=== PATIENT | female | born 1965 | race Caucasian/White ===

== ENCOUNTER 2017-11-13 07:38 | Observation (INO) ==
[2017-11-13] MEDS ORDERED: Morphine Inj 4 MG/ML Vial IV.PUSH ONE (08:01)
[2017-11-13 08:23] LABS: Baso # (Auto) 0.5 th/mm3 (0.0-0.2); Baso % (Auto) 3.7 % (0.0-2.0); Eos # (Auto) 0.1 th/mm3 (0.0-0.4); Eos % (Auto) 0.4 % (0.0-4.0); Hemoglobin 15.1 gm/dL (11.6-15.3); Lymph # (Auto) 1.3 th/mm3 (1.0-4.8); Lymph % (Auto) 9.2 % (9.0-44.0); Mean Corpuscular HGB Conc 32.8 % (32.0-36.0); Mean Corpuscular Hemoglobin 29.6 pg (27.0-34.0); Mean Corpuscular Volume 90.5 fL (80.0-100.0); Mean Platelet Volume 7.9 fL (7.0-11.0); Mono # (Auto) 0.9 th/mm3 (0.0-0.9); Mono % (Auto) 6.3 % (0.0-8.0); Neut # (Auto) 11.8 th/mm3 (1.8-7.7); Neut % (Auto) 80.4 % (16.0-70.0); Platelet Count 476 th/mm3 (150-450); Red Blood Count 5.09 mil/mm3 (4.00-5.30); Red Cell Distribution Width 12.9 % (11.6-17.2); White Blood Count 14.6 th/mm3 (4.0-11.0)
[2017-11-13 08:28] LABS: Bilirubin,Urine Moderate (Negative); Clarity,Urine Clear (Clear); Color,Urine Yellow (Yellw/Straw); Glucose,Urine (UA) Negative (Negative); Leukocyte Esterase,Urine Negative (Negative); Nitrite,Urine Negative (Negative); Specific Gravity,Urine Greater/Equal 1.030 (1.002-1.035)
[2017-11-13 08:31] LABS: Ictotest,Urine Positive (Negative)
[2017-11-13 08:32] LABS: Chloride 104 meq/L (98-107); Potassium 3.7 meq/L (3.5-5.1); Sodium 136 meq/L (136-145)
[2017-11-13 08:34] LABS: Hyaline Casts,Urine 0-3 /lpf (0-3); Squamous Epithelial Cell,Urine 0-5 /hpf (0-5); WBC,Urine 0-5 /hpf (0-5)
[2017-11-13 08:35] LABS: Mucus,Urine Moderate /lpf (Occasional)
[2017-11-13 08:35] LABS: Calcium 8.9 mg/dL (8.5-10.1)
[2017-11-13 08:36] LABS: Albumin 3.6 g/dL (3.4-5.0); Anion Gap 13 meq/L (5-15); Blood Urea Nitrogen 9 mg/dL (7-18); Carbon Dioxide 18.9 meq/L (21.0-32.0); Glucose,Random 129 mg/dL (74-106); Lipase 108 U/L (73-393)
[2017-11-13 08:38] LABS: Alanine Aminotransferase 17 U/L (10-53); Aspartate Aminotransferase 13 U/L (15-37)
[2017-11-13 08:39] LABS: Glomerular Filtration Rate 81 mL/min (>89)
[2017-11-13 08:40] LABS: Total Protein 7.5 g/dL (6.4-8.2)
[2017-11-13 08:41] LABS: Alkaline Phosphatase 60 U/L (45-117)
--- NOTE | 2017-11-13 08:45 | ED ---
HPI General Chief Complaint: Abdominal Pain Stated Complaint: severe abd pain/vomiting x2 days Time Seen by Provider: 11/13/17 07:55 Source: patient Mode of arrival: ambulatory Limitations: no limitations History of Present Illness MD complaint: abdominal pain Onset (ago): day(s) (2) Pain Consistency: constant Location: RUQ Severity scale (1-10): 5 Quality: cramping Radiation: none Migration to: no migration Relieving factors: nothing Exacerbating factors: nothing Context: other (states that she has had many self-limited previous similar episodes but that this one won't go away. All other episodes have only lasted a few minutes.) Associated symptoms: nausea and vomiting Related Data Home Medications Medication Instructions Recorded Confirmed No Known Home Medications 11/13/17 11/13/17 Allergies Allergy/AdvReac Type Severity Reaction Status Date / Time penicillin G Allergy Intermediate Hives Verified 11/13/17 08:01 Review of Systems ROS: all other systems reviewed are negative [facility] Medical History Medical History Patient denies medical problems (Acute) Surgical History Surgical History H/O: (Acute) Social History Social History Substance History: No History of Abuse Smoking Status: Never smoker How Often Do You Have a Drink Containing Alcohol: Monthly or less Recent Travel in [facility] within the Last 8 Weeks: No Recent Out of Country Travel within the Last 8 Weeks: No Immunization History Tetanus Immunization: Unsure Hx Influenza Vaccine This Season: No Exam Const General: cooperative, healthy appearing and comfortable [facility] Head: normal to inspection, normocephalic and atraumatic Eyes General: appearance normal, both eyes and all related structures Conjunctivae: conjunctivae normal Sclera: sclerae normal Neck Neck: normal visual inspection and full ROM Chest Chest: normal inspection of the chest Resp Effort & Inspection: normal respiratory effort and able to speak in complete sentences Auscultation: clear to auscultation bilaterally Cardio Rate: regular rate Rhythm: regular rhythm Heart Sounds: S1 normal and S2 normal GI Inspection: normal to inspection Palpation: soft, no guarding and tender in the RUQ; with no rebound tenderness Back/Spine/Pelvis Cervical Spine: cervical ROM normal Thoracic/Lumbar Spine: thoraco-lumbar ROM normal Skin General: no rashes or lesions noted and turgor normal Neuro General: alert, awake, oriented x3, moves all extremities and CN's II-XI intact bilaterally Extrem General: normal to inspection and full ROM Psych Appearance: grossly normal Mental Status: mental status grossly normal Speech and Movement: speech and movement normal Mood: congruent mood Affect: normal affect Attitude: cooperative Thought Process: normal Thought Content: normal Judgment: judgment good Course Reevaluation(s) Reevaluation #1: Based upon the results of her laboratory and radiographic findings, I have recommended admission to the hospital surgical consultation. The patient is very interested in a rapid discharge. She is wondering if she could have a cholecystectomy done today. She does state that she is n.p.o. I will consult the surgeon. Time: 10:23 Consultations Consultation #1: Dr. Hou will admit Time: 10:45 Consultation #2: Dr. Montejo will see in consultation for cholecystectomy Time: 10:59 Initial Documented Vital Signs Temperature 98.8 F 11/13/17 07:44 Pulse Rate 99 H 11/13/17 07:44 Respiratory Rate 16 11/13/17 07:44 Blood Pressure 145/78 H 11/13/17 07:44 Pulse Oximetry 98 11/13/17 07:44 Last Documented Vital Signs Temperature 98.8 F 11/13/17 07:44 Pulse Rate 83 11/13/17 09:00 Respiratory Rate 14 11/13/17 09:00 Blood Pressure 134/69 11/13/17 09:00 Pulse Oximetry 97 11/13/17 09:00 Medical Decision Making [facility] Narrative Medical decision making narrative: This patient presents with right upper quadrant pain associated with nausea and vomiting. Her pain and vomiting will be treated with IV morphine and ODT Zofran. Routine abdominal pain labs are pending as is a CT of the abdomen and pelvis. Differential Diagnosis Differential Diagnosis: Differential diagnosis of abdominal pain includes but is not limited to gastritis, pancreatitis, hepatitis, gastroenteritis, constipation, urinary retention, peptic ulcer disease, diverticulitis or appendicitis POC Test Results POC Urine Results: Negative Lab Data Lab results reviewed: Yes I reviewed the patient's lab results. Result diagrams: 11/13/17 08:15 11/13/17 08:15 Lab Results 11/13/17 11/13/17 11/13/17 Range/Units 08:15 08:15 08:25 CBC w Diff Auto diff final WBC 14.6 H (4.0-11.0) th/mm3 RBC 5.09 (4.00-5.30) mil/mm3 Hgb 15.1 (11.6-15.3) gm/dL Hct 46.0 (35.0-46.0) % MCV 90.5 (80.0-100.0) fL MCH 29.6 (27.0-34.0) pg MCHC 32.8 (32.0-36.0) % RDW 12.9 (11.6-17.2) % Plt Count 476 H (150-450) th/mm3 MPV 7.9 (7.0-11.0) fL Neut % (Auto) 80.4 H (16.0-70.0) % Lymph % (Auto) 9.2 (9.0-44.0) % [place] % (Auto) 6.3 (0.0-8.0) % Eos % (Auto) 0.4 (0.0-4.0) % Baso % (Auto) 3.7 H (0.0-2.0) % Neut # (Auto) 11.8 H (1.8-7.7) th/mm3 Lymph # (Auto) 1.3 (1.0-4.8) th/mm3 [place] # (Auto) 0.9 (0.0-0.9) th/mm3 Eos # (Auto) 0.1 (0.0-0.4) th/mm3 Baso # (Auto) 0.5 H (0.0-0.2) th/mm3 WBC Differential . Differential Comment . Sodium 136 (136-145) meq/L Potassium 3.7 (3.5-5.1) meq/L Chloride 104 (98-107) meq/L Carbon Dioxide 18.9 L (21.0-32.0) meq/L Anion Gap 13 (5-15) meq/L BUN 9 (7-18) mg/dL Creatinine 0.75 (0.50-1.00) mg/dL Estimated GFR 81 L (>89) mL/min Random Glucose 129 H (74-106) mg/dL Calcium 8.9 (8.5-10.1) mg/dL Total Bilirubin 0.6 (0.2-1.0) mg/dL AST 13 L (15-37) U/L ALT 17 (10-53) U/L Alkaline Phosphatase 60 (45-117) U/L Total Protein 7.5 (6.4-8.2) g/dL Albumin 3.6 (3.4-5.0) g/dL Lipase 108 (73-393) U/L Urine Color Yellow (Yellw/Straw) Urine Clarity Clear (Clear) Urine pH 6.0 (5.0-8.5) Ur Specific [place] Greater/equal 1.030 (1.002-1.035) Urine Protein 100 H (Neg-Trace) mg/dL Urine Glucose (UA) Negative (Negative) mg/dL Urine Ketones 80 or greater (Negative) mg/dL Urine Occult Blood Negative (Negative) Urine Nitrate Negative (Negative) Urine Bilirubin Moderate H (Negative) Urine Ictotest Positive H (Negative) Urine Urobilinogen 1.0 (Less than 2) mg/dL Ur Leukocyte Esterase Negative (Negative) Urine WBC 0-5 (0-5) /hpf Ur Squamous Epith Cells 0-5 (0-5) /hpf Hyaline Casts 0-3 (0-3) /lpf Fine Granular Casts 1-3 H (None) /lpf Urine Mucus Moderate H (Occasional) /lpf Micro UA Comment Culture not ind Urine Culture Comments Culture not ind Imaging Data Radiologist's impression: Abdomen/Pelvis CT 11/13/17 08:01 CONCLUSION: 1. Abnormal appearance of the gallbladder with gallbladder wall thickening, focus of intraluminal gallbladder air and pericholecystic stranding. 2. Findings consistent with mild jejunal enteritis and mild ileus pattern. There is a 1.7 cm targetoid-appearing intraluminal lesion in the cecum which may reflect a gallstone. Constellation of findings may reflect gallstone ileus. 3. Trace amount of ascites. Discharge Plan Discharge Disposition Patient Disposition: 30 Still Patient Discharge Details Diagnosis: Acute cholecystitis due to biliary calculus, Gallstone ileus Physicians Team ED Provider: Kelli Vinson Primary Care Provider: Primary Care Cinthya Burgos Rxs /Orders / Referrals /Forms Prescriptions: No Action No Known Home Medications RF: 0 Status ED Status: Pending Admission
--- NOTE | 2017-11-13 09:54 | CT ---
EXAM DATE: 11/13/2017 8:39 AM EDT AGE/SEX: 52 years / Female INDICATIONS: Right upper quadrant pain for two days. CLINICAL DATA: This is the patient's initial encounter. Patient reports that signs and symptoms have been present for 2 days and indicates a pain score of 5/10. MEDICAL/SURGICAL HISTORY: None. section. ORAL CONTRAST: No oral contrast ingested. RADIATION DOSE: 20.19 CTDI (mGy) COMPARISON: No prior exams available for comparison. TECHNIQUE: Multiple contiguous axial images were obtained through the abdomen and pelvis following b olus infusion of 95 ml Omnipaque 350 (iohexol) nonionic water-soluble contrast as a single exam dos e. No oral contrast ingested. Using automated exposure control and adjustment of the mA and/or kV ac cording to patient size, radiation dose was kept as low as reasonably achievable to obtain optimal di agnostic quality images. DICOM format image data is available electronically for review and comparis on. FINDINGS: LOWER LUNGS: The visualized lower lungs are clear. LIVER: Focal ill-defined hypodensity near the falciform ligament likely reflects focal fat. Liver is otherwise unremarkable without intrahepatic ductal dilatation. Gallbladder is nearly completely deco mpressed. However, there is gallbladder wall thickening with a focus of air in the gallbladder and th ere is stranding in the gallbladder fossa. SPLEEN: Homogeneous density without enlargement. PANCREAS: Unremarkable without mass or calcification. KIDNEYS: Kidneys demonstrate symmetrical enhancement and are symmetrical in size without evidence fo r radiopaque renal calculi or hydronephrosis. ADRENAL GLANDS: Unremarkable. AORTA: Denise-aneurysmal. BOWEL/MESENTERY: There are several loops of mid to distal jejunum which demonstrate wall thickening and increased wall enhancement. More distally, there are multiple loops of marginally distended fluid -filled distal jejunum and ileum. The terminal ileum is grossly unremarkable by CT. There is a rounde d targetoid-appearing intraluminal lesion in the cecum measuring 1.7 cm. Fluid is noted in the cecum which does not appear significantly dilated. Remainder of the colon appears unremarkable. There is tr vita amount of free fluid in the abdomen with small amount of fluid in the deep pelvis. ABDOMINAL WALL : Intact. RETROPERITONEUM: No evidence of adenopathy in the retrocrural, para-aortic, or deep pelvic regions. BLADDER: Nearly completely decompressed. REPRODUCTIVE: No abnormal masses or calcifications seen. BONY STRUCTURES: Unremarkable. CONCLUSION: 1. Abnormal appearance of the gallbladder with gallbladder wall thickening, focus of intraluminal ga llbladder air and pericholecystic stranding. 2. Findings consistent with mild jejunal enteritis and mild ileus pattern. There is a 1.7 cm targeto id-appearing intraluminal lesion in the cecum which may reflect a gallstone. Constellation of finding s may reflect gallstone ileus. 3. Trace amount of ascites. Electronically signed by: Corby Bruner MD 11/13/2017 9:53 AM EDT
[2017-11-13] MEDS ORDERED: Bisacodyl 10 MG Supp RECTAL PRN (11:03)
[2017-11-13] MEDS ORDERED: Temazepam 15 MG Capsule PO PRN (11:03)
--- NOTE | 2017-11-13 11:11 | P.HPIM ---
History of Present Illness Primary Care Physician: No Primary Care Physician Chief Complaint: Abdominal pain with nausea and vomiting History of Present Illness: This patient very pleasant healthy 52-year-old female who reports at least 2 years of intermittent abdominal pain which has been severe with increased association of nausea and vomiting over the last 2 days. She normally has this pain intermittently worse with fatty foods and improved with dietary changes. She has never been evaluated in the past for that. She has some leukocytosis and decreased CO2. Abdominal discomfort here was relieved with antiemetics. Patient has declined any narcotics. Patient CT of the abdomen and pelvis was done which did show gallbladder disease. Patient is recommended for further observation due to dehydration and evaluation of her gallbladder. - Diagnosis (1) Nausea and vomiting (2) Gallstone ileus Review of Systems All other systems reviewed negative except as stated in HPI PMFSH - History History Provided By: Patient - Medical History Medical History: Medical History (Last Reviewed 11/13/17 @ 11:10 by Lisa Hou MD) Patient denies medical problems - Surgical History Surgical History: Surgical History (Last Reviewed 11/13/17 @ 11:10 by Lisa Hou MD) H/O: - Family History Family History: Family History (Last Updated 11/13/17 @ 11:10 by Lisa Hou MD) Other Bladder cancer - Tobacco History Smoking Status: Never smoker - Alcohol History How Often Do You Have a Drink Containing Alcohol: Monthly or less - Substance Use History Substance History: No History of Abuse - Travel History Recent Travel in the [place] Within the Last 8 Weeks: No Recent Travel Out of the Country Within the Last 8 Weeks: No - Immunization History Tetanus Immunization: Unsure Hx Influenza Vaccine This Season: No Medications and Allergies Active Medications: Active Medications Bisacodyl (Dulcolax Supp) 10 mg RECTAL DAILY PRN PRN Reason: SEVERE CONSITIPATION Lactated Ringer's (Lr 1000 Ml Inj) 1,000 mls @ 100 mls/hr IV.CONT .Q10H DEEPA Lactulose (Lactulose Liq) 30 ml PO DAILY PRN PRN Reason: SEVERE CONSITIPATION Metoclopramide HCl (Reglan Inj) 5 mg IV.PUSH Q6HR PRN; Protocol PRN Reason: NAUSEA OR VOMITING Sodium Chloride (Ns Flush) 2 ml IV.FLUSH PRN PRN PRN Reason: FLUSH AFTER USING IV ACCESS Temazepam (Restoril) 15 mg PO HS PRN PRN Reason: INSOMNIA Allergies Allergy/AdvReac Type Severity Reaction Status Date / Time penicillin G Allergy Intermediate Hives Verified 11/13/17 08:01 Home Medications Medication Instructions Recorded Confirmed Type No Known Home Medications 11/13/17 11/13/17 History Exam Vital signs: Vital Signs 11/13/17 07:44 11/13/17 09:00 Temperature 98.8 F Pulse Rate 99 H 83 Respiratory Rate 16 14 Blood Pressure 145/78 H 134/69 Pulse Oximetry 98 97 Intake & Output 11/12/17 11/13/17 11/13/17 18:59 06:59 18:59 Weight 94.3 kg Narrative: GENERAL: Well-nourished, well-developed patient. Complaining of nausea SKIN: Warm and dry. HEAD: Normocephalic. EYES: No scleral icterus. No injection or drainage. NECK: Supple, trachea midline. No JVD or lymphadenopathy. CARDIOVASCULAR: Regular rate and rhythm without murmurs, gallops, or rubs. RESPIRATORY: Breath sounds equal bilaterally. No accessory muscle use. GASTROINTESTINAL: Abdomen soft, non-tender, mildly distended negative Conroy's MUSCULOSKELETAL: No cyanosis, or edema. BACK: Nontender without obvious deformity. No CVA tenderness. NEUROLOGICAL: Awake and alert. Cranial nerves II through XII intact. Motor and sensory grossly within normal limits. Five out of 5 muscle strength in all muscle groups. Normal speech. Results - Labs CBC & Chem 7: 11/13/17 08:15 11/13/17 08:15 Labs: Short CBC 11/13/17 Range/Units 08:15 WBC 14.6 H (4.0-11.0) th/mm3 Hgb 15.1 (11.6-15.3) gm/dL Hct 46.0 (35.0-46.0) % Plt Count 476 H (150-450) th/mm3 BMP 11/13/17 08:15 Sodium 136 Potassium 3.7 Chloride 104 Carbon Dioxide 18.9 L BUN 9 Creatinine 0.75 Calcium 8.9 Liver Function 11/13/17 Range/Units 08:15 Total Bilirubin 0.6 (0.2-1.0) mg/dL AST 13 L (15-37) U/L ALT 17 (10-53) U/L Alkaline Phosphatase 60 (45-117) U/L Albumin 3.6 (3.4-5.0) g/dL Urine 11/13/17 Range/Units 08:25 Urine Color Yellow (Yellw/Straw) Urine Clarity Clear (Clear) Urine pH 6.0 (5.0-8.5) Ur Specific [place] Greater/equal 1.030 (1.002-1.035) Urine Protein 100 H (Neg-Trace) mg/dL Urine Glucose (UA) Negative (Negative) mg/dL - Imaging Impressions Abdomen/Pelvis CT 11/13/17 08:01 CONCLUSION: 1. Abnormal appearance of the gallbladder with gallbladder wall thickening, focus of intraluminal gallbladder air and pericholecystic stranding. 2. Findings consistent with mild jejunal enteritis and mild ileus pattern. There is a 1.7 cm targetoid-appearing intraluminal lesion in the cecum which may reflect a gallstone. Constellation of findings may reflect gallstone ileus. 3. Trace amount of ascites. Caprini VTE Risk Assessment Caprini VTE Risk Assessment: No/Low Risk (score <= 1) Caprini Risk Assessment Model: Point Value = 1 Point Value = 2 Point Value = 3 Point Value = 5 Age 41-60 Minor surgery BMI > 25 kg/m2 Swollen legs Varicose veins or History of unexplained or recurrent spontaneous Oral contraceptives or hormone replacement Sepsis (< 1 month) Serious lung disease, including pneumonia (< 1 month) Abnormal pulmonary function Acute myocardial infarction Congestive heart failure (< 1 month) History of inflammatory bowel disease Medical patient at bed rest Age 61-74 Arthroscopic surgery Major open surgery (> 45 min) Laparoscopic surgery (> 45 min) Malignancy Confined to bed (> 72 hours) Immobilizing plaster cast Central venous access Age >= 75 History of VTE Family history of VTE Factor V Leiden Prothrombin [id number] Lupus anticoagulant Anticardiolipin antibodies Elevated serum homocysteine Heparin-induced thrombocytopenia Other congenital or acquired thrombophilia Stroke (< 1 month) Elective arthroplasty Hip, pelvis, or leg fracture Acute spinal cord injury (< 1 month) Prophylaxis Regimen: Total Risk Factor Score Risk Level Prophylaxis Regimen 0-1 Low Early ambulation 2 Moderate Order ONE of the following: *Sequential Compression Device (SCD) *Heparin 5000 units SQ BID 3-4 Higher Order ONE of the following medications: *Heparin 5000 units SQ TID *Enoxaparin/Lovenox 40 mg SQ daily (WT < 150 kg, CrCl > 30 mL/min) *Enoxaparin/Lovenox 30 mg SQ daily (WT < 150 kg, CrCl > 10-29 mL/min) *Enoxaparin/Lovenox 30 mg SQ BID (WT < 150 kg, CrCl > 30 mL/min) AND/OR *Sequential Compression Device (SCD) 5 or more Highest Order ONE of the following medications: *Heparin 5000 units SQ TID (Preferred with Epidurals) *Enoxaparin/Lovenox 40 mg SQ daily (WT < 150 kg, CrCl > 30 mL/min) *Enoxaparin/Lovenox 30 mg SQ daily (WT < 150 kg, CrCl > 10-29 mL/min) *Enoxaparin/Lovenox 30 mg SQ BID (WT < 150 kg, CrCl > 30 mL/min) AND *Sequential Compression Device (SCD) Assessment and Plan - Assessment (1) Nausea and vomiting Code(s): R11.2 - Nausea with vomiting, unspecified Status: Acute Plan: Continue with IV hydration Antiemetics as needed (2) Gallstone ileus Code(s): K56.3 - Gallstone ileus Status: Acute Plan: Continue with n.p.o. status General surgery consult pending for possible cholecystectomy Follow-up ultrasound right upper quadrant
--- NOTE | 2017-11-13 12:51 | US ---
EXAM DATE: 11/13/2017 12:44 PM EDT AGE/SEX: 52 years / Female INDICATIONS: Right upper quadrant pain. CLINICAL DATA: This is the patient's initial encounter. Patient reports that signs and symptoms have been present for 1 day and indicates a pain score of 5/10. MEDICAL/SURGICAL HISTORY: Carcinoma, bladder. section. COMPARISON: [facility], CT ABDOMEN & PELVIS W CONTRAST, 11/13/2017. . MEASUREMENTS: Liver:__ 14.3 cm. Common Bile Duct:__ Nonvisualized. FINDINGS: Liver: Normal echotexture without focal lesion or ductal dilatation. Portal Vein: Hepatopedal flow seen in portal vein. Common Duct: Not visualized Gallbladder: Gallbladder wall appears mildly thickened. Shadowing gallstones present. Pancreas: Not well visualized. Right Kidney: Normal echotexture and cortical thickness. No mass or hydronephrosis. CONCLUSION: 1. Mild thickening of the gallbladder wall with presumed gallstones. Gallbladder is partially contra cted. The common bile duct and pancreas are not well visualized. No significant abnormality in the li warren. Electronically signed by: Bg Crews MD 11/13/2017 12:49 PM EDT
--- NOTE | 2017-11-13 20:55 | P.CONGS ---
HPI Gen Surgery Consult Note Consult date: 11/13/17 Reason for consult: gallstones Requesting physician: Lisa Hou Narrative: This is a 52 year old female with no significant past medical history who presented to the ED with complaints of 2 day history of abdominal pain with associated nausea and vomiting. She has had intermittent abdominal pain for the past two years but never this severe. She can associated pain with fatty foods such as pizza. A CT abdomen/pelvis was obtained which shows dilated loops and a concern for gallstone ileus with a gallstone visualized in the cecum. A gallbladder ultrasound was obtained which shows mild thickening of the gallbladder wall and cholelithiasis. A General Surgery consultation has been requested. <Apolonia Stallworth - Last Filed: 11/14/17 10:04> Review of Systems Constitutional: Denies chills, Denies fever(s), Denies headache(s) Eyes: Denies blurry vision Ears, Nose, Mouth, and Throat: Denies headache(s) Cardiovascular: Denies chest pain, Denies chest pain at rest, Denies chest pain with activity Respiratory: Denies chest congestion, Denies cough Gastrointestinal: Reports abdominal pain, Reports nausea, Reports vomiting Genitourinary: Denies pelvic pain Musculoskeletal: Reports back pain, Denies joint pain Skin/Breast: Denies boil, Denies lesions Neurologic: Denies abnormal hearing, Denies loss of vision Psychiatric: Denies anxiety, Denies confusion, Denies depression Endocrine: Denies cold intolerance, Denies heat intolerance Hematologic/Lymphatic: Denies easy bleeding, Denies easy bruising Allergic/Immunologic: Reports GI upset with certain foods <Apolonia Stallworth - Last Filed: 11/14/17 10:04> PMFSH - History History Provided By: Patient - Medical / Surgical Hx Neg / Unobtainable Medical Problems Denied: Yes - Medical History Medical History: Medical History (Last Reviewed 11/13/17 @ 20:57 by ZARINA Devries) Patient denies medical problems - Surgical History Surgical History: Surgical History (Last Reviewed 11/13/17 @ 20:57 by ZARINA Devries) H/O: - Family History Family History: Family History (Last Updated 11/13/17 @ 11:10 by Lisa Hou MD) Other Bladder cancer - Tobacco History Second Hand Smoke Exposure: No Smoking Status: Never smoker - Alcohol History How Often Do You Have a Drink Containing Alcohol: Never - Substance Use History Substance History: No History of Abuse - Travel History Recent Travel in the [place] Within the Last 8 Weeks: Yes Recent Travel Out of the Country Within the Last 8 Weeks: No - Immunization History Tetanus Immunization: Unsure Hx Influenza Vaccine This Season: No <Apolonia Stallworth - Last Filed: 11/14/17 10:04> - Medical History Medical History: Medical History (Last Reviewed 11/13/17 @ 20:57 by ZARINA Devries) Patient denies medical problems - Surgical History Surgical History: Surgical History (Last Reviewed 11/13/17 @ 20:57 by ZARINA Devries) H/O: - Family History Family History: Family History (Last Updated 11/13/17 @ 11:10 by Lisa Hou MD) Other Bladder cancer <Jakob Brown - Last Filed: 11/14/17 14:49> Medications and Allergies Active Medications: Active Medications Bisacodyl (Dulcolax Supp) 10 mg RECTAL DAILY PRN PRN Reason: SEVERE CONSITIPATION Lactated Ringer's (Lr 1000 Ml Inj) 1,000 mls @ 100 mls/hr IV.CONT .Q10H [facility] Last Admin: 11/13/17 11:17 Dose: 100 mls/hr Moxifloxacin HCl (Avelox 400 Mg Premix) 250 mls @ 250 mls/hr IV.SIG Q24H [facility] Last Infusion: 11/13/17 12:20 Dose: Infused Lactulose (Lactulose Liq) 30 ml PO DAILY PRN PRN Reason: SEVERE CONSITIPATION Metoclopramide HCl (Reglan Inj) 5 mg IV.PUSH Q6HR PRN; Protocol PRN Reason: NAUSEA OR VOMITING Ondansetron HCl (Zofran Inj) 4 mg IV.PUSH Q6H PRN PRN Reason: nausea/vomiting Sodium Chloride (Ns Flush) 2 ml IV.FLUSH PRN PRN PRN Reason: FLUSH AFTER USING IV ACCESS Temazepam (Restoril) 15 mg PO HS PRN PRN Reason: INSOMNIA <Apolonia Stallworth - Last Filed: 11/14/17 10:04> Active Medications: Active Medications Bisacodyl (Dulcolax Supp) 10 mg RECTAL DAILY PRN PRN Reason: SEVERE CONSITIPATION Lactated Ringer's (Lr 1000 Ml Inj) 1,000 mls @ 100 mls/hr IV.CONT .Q10H [facility] Last Admin: 11/14/17 02:43 Dose: 100 mls/hr Moxifloxacin HCl (Avelox 400 Mg Premix) 250 mls @ 250 mls/hr IV.SIG Q24H [facility] Last Admin: 11/14/17 13:26 Dose: 250 mls/hr Lactulose (Lactulose Liq) 30 ml PO DAILY PRN PRN Reason: SEVERE CONSITIPATION Metoclopramide HCl (Reglan Inj) 5 mg IV.PUSH Q6HR PRN; Protocol PRN Reason: NAUSEA OR VOMITING Ondansetron HCl (Zofran Inj) 4 mg IV.PUSH Q6H PRN PRN Reason: nausea/vomiting Sodium Chloride (Ns Flush) 2 ml IV.FLUSH PRN PRN PRN Reason: FLUSH AFTER USING IV ACCESS Temazepam (Restoril) 15 mg PO HS PRN PRN Reason: INSOMNIA <Jakob Brown - Last Filed: 11/14/17 14:49> Allergies Allergy/AdvReac Type Severity Reaction Status Date / Time penicillin G Allergy Intermediate Hives Verified 11/13/17 08:01 Home Medications Medication Instructions Recorded Confirmed Type No Known Home Medications 11/13/17 11/13/17 History Exam Vital signs: Vital Signs 11/13/17 07:44 11/13/17 09:00 11/13/17 12:00 Temperature 98.8 F 98.2 F Pulse Rate 99 H 83 70 Respiratory Rate 16 14 18 Blood Pressure 145/78 H 134/69 125/68 Pulse Oximetry 98 97 99 11/13/17 16:00 11/13/17 20:00 Temperature 98.2 F 98.6 F Pulse Rate 83 72 Respiratory Rate 18 Blood Pressure 105/57 L 115/59 L Pulse Oximetry 99 97 Intake & Output 11/13/17 11/13/17 11/14/17 06:59 18:59 06:59 Intake Total 1730 / 1730 Balance 1730 / 1730 Weight 94.3 kg Intake: IV 1250 / 1250 LR 1000 mL Inj 1,000 ML @ Wide 1000 / 1000 Open IV.SIG BOLUS ONE Rx#: [id number] Avelox 400 mg Premix 250 ML @ 250 / 250 250 mls/hr IV.SIG Q24H [facility] Rx#: [id number] Oral 480 / 480 Oral Supplement 0 / 0 Other: # Voids 2 # Bowel Movements 0 Narrative: GENERAL: Very pleasant 52 year old female resting in bed in no acute distress. SKIN: Warm and dry. HEAD: Atraumatic. Normocephalic. EYES: Pupils equal and round. No scleral icterus. No injection or drainage. ENT: No nasal bleeding or discharge. Mucous membranes pink and moist. NECK: Trachea midline. CARDIOVASCULAR: Regular rate and rhythm. RESPIRATORY: No accessory muscle use. Clear to auscultation. Breath sounds equal bilaterally. GASTROINTESTINAL: Abdomen soft, nondistended. She is mildly tender in the RUQ. She has a well healed low transverse scar. MUSCULOSKELETAL: Extremities without clubbing, cyanosis, or edema. No obvious deformities. NEUROLOGICAL: Awake and alert. No obvious cranial nerve deficits. Motor grossly within normal limits. Five out of 5 muscle strength in the arms and legs. Normal speech. PSYCHIATRIC: Appropriate mood and affect; insight and judgment normal. <Apolonia Stallworth - Last Filed: 11/14/17 10:04> Vital signs: Vital Signs 11/13/17 16:00 11/13/17 20:00 11/14/17 00:00 Temperature 98.2 F 98.6 F 97.7 F Pulse Rate 83 72 66 Respiratory Rate 18 18 Blood Pressure 105/57 L 115/59 L 113/54 L Pulse Oximetry 99 97 97 11/14/17 08:00 Temperature 97.6 F Pulse Rate 74 Respiratory Rate 16 Blood Pressure 138/67 Pulse Oximetry 97 Intake & Output 11/13/17 11/14/17 11/14/17 18:59 06:59 18:59 Intake Total 1730 / 1730 1000 / 1000 Balance 1730 / 1730 1000 / 1000 Weight 94.3 kg 95.5 kg Intake: IV 1250 / 1250 1000 / 1000 LR 1000 mL Inj 1,000 ML @ 100 1000 / 1000 mls/hr IV.CONT .Q10H [facility] Rx#: [id number] LR 1000 mL Inj 1,000 ML @ Wide 1000 / 1000 Open IV.SIG BOLUS ONE Rx#: [id number] Avelox 400 mg Premix 250 ML @ 250 / 250 250 mls/hr IV.SIG Q24H [facility] Rx#: [id number] Oral 480 / 480 0 / 0 Oral Supplement 0 / 0 Other: # Voids 2 1 Date of Last Bowel Movement 11/11/17 11/11/17 # Bowel Movements 0 <Jakob Brown - Last Filed: 11/14/17 14:49> Results - Labs 11/14/17 05:32 11/14/17 05:32 Laboratory Results CBC w Diff Auto diff final 11/14/17 05:32 WBC 6.9 th/mm3 (4.0-11.0) D 11/14/17 05:32 RBC 3.99 mil/mm3 (4.00-5.30) L 11/14/17 05:32 Hgb 12.1 gm/dL (11.6-15.3) D 11/14/17 05:32 Hct 36.3 % (35.0-46.0) 11/14/17 05:32 MCV 90.8 fL (80.0-100.0) 11/14/17 05:32 MCH 30.4 pg (27.0-34.0) 11/14/17 05:32 MCHC 33.5 % (32.0-36.0) 11/14/17 05:32 RDW 12.5 % (11.6-17.2) 11/14/17 05:32 Plt Count 331 th/mm3 (150-450) D 11/14/17 05:32 MPV 7.8 fL (7.0-11.0) 11/14/17 05:32 Neut % (Auto) 62.6 % (16.0-70.0) 11/14/17 05:32 Lymph % (Auto) 22.5 % (9.0-44.0) 11/14/17 05:32 [place] % (Auto) 9.5 % (0.0-8.0) H 11/14/17 05:32 Eos % (Auto) 4.3 % (0.0-4.0) H 11/14/17 05:32 Baso % (Auto) 1.1 % (0.0-2.0) 11/14/17 05:32 Neut # (Auto) 4.2 th/mm3 (1.8-7.7) 11/14/17 05:32 Lymph # (Auto) 1.6 th/mm3 (1.0-4.8) 11/14/17 05:32 [place] # (Auto) 0.7 th/mm3 (0.0-0.9) 11/14/17 05:32 Eos # (Auto) 0.3 th/mm3 (0.0-0.4) 11/14/17 05:32 Baso # (Auto) 0.1 th/mm3 (0.0-0.2) 11/14/17 05:32 WBC Differential . 11/14/17 05:32 Differential Comment . 11/14/17 05:32 Sodium 142 meq/L (136-145) 11/14/17 05:32 Potassium 3.8 meq/L (3.5-5.1) 11/14/17 05:32 Chloride 109 meq/L (98-107) H 11/14/17 05:32 Carbon Dioxide 26.2 meq/L (21.0-32.0) 11/14/17 05:32 Anion Gap 7 meq/L (5-15) 11/14/17 05:32 BUN 7 mg/dL (7-18) 11/14/17 05:32 Creatinine 0.69 mg/dL (0.50-1.00) 11/14/17 05:32 Estimated GFR 89 mL/min (>89) 11/14/17 05:32 Random Glucose 82 mg/dL (74-106) 11/14/17 05:32 Calcium 8.0 mg/dL (8.5-10.1) L D 11/14/17 05:32 Total Bilirubin 0.6 mg/dL (0.2-1.0) 11/13/17 08:15 AST 13 U/L (15-37) L 11/13/17 08:15 ALT 17 U/L (10-53) 11/13/17 08:15 Alkaline Phosphatase 60 U/L (45-117) 11/13/17 08:15 Total Protein 7.5 g/dL (6.4-8.2) 11/13/17 08:15 Albumin 3.6 g/dL (3.4-5.0) 11/13/17 08:15 Lipase 108 U/L (73-393) 11/13/17 08:15 Urine Color Yellow (Yellw/Straw) 11/13/17 08:25 Urine Clarity Clear (Clear) 11/13/17 08:25 Urine pH 6.0 (5.0-8.5) 11/13/17 08:25 Ur Specific [place] Greater/equal 1.030 (1.002-1.035) 11/13/17 08:25 Urine Protein 100 mg/dL (Neg-Trace) H 11/13/17 08:25 Urine Glucose (UA) Negative mg/dL (Negative) 11/13/17 08:25 Urine Ketones 80 or greater mg/dL (Negative) 11/13/17 08:25 Urine Occult Blood Negative (Negative) 11/13/17 08:25 Urine Nitrate Negative (Negative) 11/13/17 08:25 Urine Bilirubin Moderate (Negative) H 11/13/17 08:25 Urine Ictotest Positive (Negative) H 11/13/17 08:25 Urine Urobilinogen 1.0 mg/dL (Less than 2) 11/13/17 08:25 Ur Leukocyte Esterase Negative (Negative) 11/13/17 08:25 Urine WBC 0-5 /hpf (0-5) 11/13/17 08:25 Ur Squamous Epith Cells 0-5 /hpf (0-5) 11/13/17 08:25 Hyaline Casts 0-3 /lpf (0-3) 11/13/17 08:25 Fine Granular Casts 1-3 /lpf (None) H 11/13/17 08:25 Urine Mucus Moderate /lpf (Occasional) H 11/13/17 08:25 Micro UA Comment Culture not ind 11/13/17 08:25 Urine Culture Comments Culture not ind 11/13/17 08:25 Impressions Gallbladder Ultrasound 11/13/17 00:00 CONCLUSION: 1. Mild thickening of the gallbladder wall with presumed gallstones. Gallbladder is partially contracted. The common bile duct and pancreas are not well visualized. No significant abnormality in the liver. Abdomen/Pelvis CT 11/13/17 08:01 CONCLUSION: 1. Abnormal appearance of the gallbladder with gallbladder wall thickening, focus of intraluminal gallbladder air and pericholecystic stranding. 2. Findings consistent with mild jejunal enteritis and mild ileus pattern. There is a 1.7 cm targetoid-appearing intraluminal lesion in the cecum which may reflect a gallstone. Constellation of findings may reflect gallstone ileus. 3. Trace amount of ascites. - Imaging CT scan - abdomen: report reviewed, image reviewed US - abdomen: report reviewed <BasimDellaApolonia - Last Filed: 11/14/17 10:04> - Labs 11/14/17 05:32 11/14/17 05:32 Abnormal lab results 11/14/17 11/14/17 Range/Units 05:32 05:32 RBC 3.99 L (4.00-5.30) mil/mm3 [place] % (Auto) 9.5 H (0.0-8.0) % Eos % (Auto) 4.3 H (0.0-4.0) % Chloride 109 H (98-107) meq/L Calcium 8.0 L D (8.5-10.1) mg/dL Diabetes panel 11/14/17 Range/Units 05:32 Sodium 142 (136-145) meq/L Potassium 3.8 (3.5-5.1) meq/L Chloride 109 H (98-107) meq/L Carbon Dioxide 26.2 (21.0-32.0) meq/L BUN 7 (7-18) mg/dL Creatinine 0.69 (0.50-1.00) mg/dL Calcium 8.0 L D (8.5-10.1) mg/dL Calcium panel 11/14/17 Range/Units 05:32 Calcium 8.0 L D (8.5-10.1) mg/dL Pituitary panel 11/14/17 Range/Units 05:32 Sodium 142 (136-145) meq/L Potassium 3.8 (3.5-5.1) meq/L Chloride 109 H (98-107) meq/L Carbon Dioxide 26.2 (21.0-32.0) meq/L BUN 7 (7-18) mg/dL Creatinine 0.69 (0.50-1.00) mg/dL Calcium 8.0 L D (8.5-10.1) mg/dL Adrenal panel 11/14/17 Range/Units 05:32 Sodium 142 (136-145) meq/L Potassium 3.8 (3.5-5.1) meq/L Chloride 109 H (98-107) meq/L Carbon Dioxide 26.2 (21.0-32.0) meq/L BUN 7 (7-18) mg/dL Creatinine 0.69 (0.50-1.00) mg/dL Calcium 8.0 L D (8.5-10.1) mg/dL All other labs normal. <Jakob Brown - Last Filed: 11/14/17 14:49> Assessment and Plan - Assessment (1) Gallstone ileus Code(s): K56.3 - Gallstone ileus Status: Acute Plan: 52 year old female with cholelithiasis; gallstone ileus -HIDA scan in AM -NPO -Discussed options of treating gallstone ileus with possible delayed cholecystectomy if needed -Will discuss more after HIDA scan tomorrow -Zofran PRN for nausea -Answered all questions -Thank you for this consult; We will continue to follow - Plan Discussed Condition With: Dr. Kevin BECERRIL Mrs. Ramirez <Apolonia Stallworth - Last Filed: 11/14/17 10:04> - Assessment (1) Gallstone ileus Code(s): K56.3 - Gallstone ileus Status: Acute - Attending Attestation The exam, history, and the medical decision-making described in the above note were completed with the assistance of the mid-level provider. I reviewed and agree with the findings presented. I attest that I had a thea-ep-syiv encounter with the patient on the same day, and personally performed and documented my assessment and findings in the medical record. 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
[2017-11-14 06:13] LABS: Baso # (Auto) 0.1 th/mm3 (0.0-0.2); Baso % (Auto) 1.1 % (0.0-2.0); Eos # (Auto) 0.3 th/mm3 (0.0-0.4); Eos % (Auto) 4.3 % (0.0-4.0); Hematocrit 36.3 % (35.0-46.0); Hemoglobin 12.1 gm/dL (11.6-15.3); Lymph # (Auto) 1.6 th/mm3 (1.0-4.8); Lymph % (Auto) 22.5 % (9.0-44.0); Mean Corpuscular HGB Conc 33.5 % (32.0-36.0); Mean Corpuscular Hemoglobin 30.4 pg (27.0-34.0); Mean Corpuscular Volume 90.8 fL (80.0-100.0); Mean Platelet Volume 7.8 fL (7.0-11.0); Mono # (Auto) 0.7 th/mm3 (0.0-0.9); Mono % (Auto) 9.5 % (0.0-8.0); Neut # (Auto) 4.2 th/mm3 (1.8-7.7); Neut % (Auto) 62.6 % (16.0-70.0); Platelet Count 331 th/mm3 (150-450); Red Blood Count 3.99 mil/mm3 (4.00-5.30); Red Cell Distribution Width 12.5 % (11.6-17.2); White Blood Count 6.9 th/mm3 (4.0-11.0)
[2017-11-14 06:20] LABS: Potassium 3.8 meq/L (3.5-5.1)
[2017-11-14 06:34] LABS: Carbon Dioxide 26.2 meq/L (21.0-32.0)
--- NOTE | 2017-11-14 13:28 | NM ---
EXAM DATE: 11/14/2017 1:13 PM EDT AGE/SEX: 52 years / Female INDICATIONS: Abdominal pain, nausea and vomiting. CLINICAL DATA: This is the patient's initial encounter. Patient reports that signs and symptoms have been present for 2 days and indicates a pain score of 7/10. MEDICAL/SURGICAL HISTORY: None. section. COMPARISON: No prior exams available for comparison. DOSE: 4.1 mCi Tc-99m mebrofenin i.v. TECHNIQUE: Following the intravenous administration of radiotracer, dynamic sequential images were pe rformed with continuous acquisition. Time-activity curves were generated. FINDINGS: Hepatic Kinetics: There is prompt uptake of radiotracer in the liver. No focal defects are seen. T here is normal rate of washout from the hepatic parenchyma. Biliary Clearance: Activity is first seen in the extrahepatic biliary system at 25 minutes. There i s normal excretion into the small bowel. Gallbladder: Activity is never identified in the gallbladder lumen. Biliary-Enteric Reflux: Single episode of biliary enteric reflux. CONCLUSION: 1. Nonvisualization of the gallbladder. In the appropriate clinical setting, findings could represen t an acute cholecystitis. 2. Single episode of biliary enteric reflux. 3. Otherwise negative. Prompt excretion of tracer into the small bowel. Electronically signed by: Ruddy Castillo MD 11/14/2017 1:27 PM EDT
--- NOTE | 2017-11-14 15:07 | P.PNGS ---
Subjective Patient reports: no new complaints, feels better Physical Exam Vital signs: Vital Signs 11/13/17 16:00 11/13/17 20:00 11/14/17 00:00 Temperature 98.2 F 98.6 F 97.7 F Pulse Rate 83 72 66 Respiratory Rate 18 18 Blood Pressure 105/57 L 115/59 L 113/54 L Pulse Oximetry 99 97 97 11/14/17 08:00 Temperature 97.6 F Pulse Rate 74 Respiratory Rate 16 Blood Pressure 138/67 Pulse Oximetry 97 Intake & Output 11/13/17 11/14/17 11/14/17 18:59 06:59 18:59 Intake Total 1730 / 1730 1000 / 1000 Balance 1730 / 1730 1000 / 1000 Weight 94.3 kg 95.5 kg Intake: IV 1250 / 1250 1000 / 1000 LR 1000 mL Inj 1,000 ML @ 100 1000 / 1000 mls/hr IV.CONT .Q10H [facility] Rx#: [id number] LR 1000 mL Inj 1,000 ML @ Wide 1000 / 1000 Open IV.SIG BOLUS ONE Rx#: [id number] Avelox 400 mg Premix 250 ML @ 250 / 250 250 mls/hr IV.SIG Q24H [facility] Rx#: [id number] Oral 480 / 480 0 / 0 Oral Supplement 0 / 0 Other: # Voids 2 1 Date of Last Bowel Movement 11/11/17 11/11/17 # Bowel Movements 0 - Constitutional no acute distress - Routine Abdominal Exam Present: soft, normoactive bowel sounds Assessment and Plan - Assessment (1) Gallstone ileus Code(s): K56.3 - Gallstone ileus Status: Acute Plan: 52 year old female with cholelithiasis; gallstone ileus -HIDA scan in AM -NPO -Discussed options of treating gallstone ileus with possible delayed cholecystectomy if needed -Will discuss more after HIDA scan tomorrow -Zofran PRN for nausea -Answered all questions -Thank you for this consult; We will continue to follow - Plan 52yo with GS ileus, SBO/ileus resolved spontaneously, advance diet, can Dc home if tolerates diet and +BM
--- NOTE | 2017-11-14 15:39 | P.DS ---
Date of admission: 11/13/17 10:57 Primary care physician: No Primary Care Physician Brief History from admission: This patient very pleasant healthy 52-year-old female who reports at least 2 years of intermittent abdominal pain which has been severe with increased association of nausea and vomiting over the last 2 days. She normally has this pain intermittently worse with fatty foods and improved with dietary changes. She has never been evaluated in the past for that. She has some leukocytosis and decreased CO2. Abdominal discomfort here was relieved with antiemetics. Patient has declined any narcotics. Patient CT of the abdomen and pelvis was done which did show gallbladder disease. Patient is recommended for further observation due to dehydration and evaluation of her gallbladder. DS: Medications - Discharge Medications Prescriptions: levofloxacin [Levaquin] 500 mg PO DAILY 7 Days #7 tab metronidazole [Flagyl] 500 mg PO BID 7 Days #14 tab DS: Summary Hospital Course: 52-year-old female with a history of cholelithiasis. She presented yesterday following episodes of abdominal pain, nausea and vomiting. She was suspect for small bowel ileus but workup revealed that she had a gallstone which had formed a fistula by eroding through to the small bowel. Her gallstone was located beyond the ileocecal valve and should not be an issue with obstruction. General surgery evaluated her and reviewed the HIDA scan. The recommendation is for her to resume regular diet, she is able to tolerate food and have a bowel movement and she can transition to outpatient follow-up. The fistula can be followed to assure that it is healing appropriately but that will take some time. She has a follow-up scheduled in [address] Goldstein and will be taking Levaquin/Flagyl for a week (allergic to PCN options). Stable for discharge, pain free. - Time Spent with Patient Total time spent providing and/or coordinating discharge services: Less than 30 minutes - Quality: VTE Deep Vein Thrombosis/Pulmonary Embolism Present on Admission: No Exam Vital signs: Vital Signs 11/13/17 16:00 11/13/17 20:00 11/14/17 00:00 Temperature 98.2 F 98.6 F 97.7 F Pulse Rate 83 72 66 Respiratory Rate 18 18 Blood Pressure 105/57 L 115/59 L 113/54 L Pulse Oximetry 99 97 97 11/14/17 08:00 Temperature 97.6 F Pulse Rate 74 Respiratory Rate 16 Blood Pressure 138/67 Pulse Oximetry 97 Intake & Output 11/13/17 11/14/17 11/14/17 18:59 06:59 18:59 Intake Total 1730 / 1730 1000 / 1000 Balance 1730 / 1730 1000 / 1000 Weight 94.3 kg 95.5 kg Intake: IV 1250 / 1250 1000 / 1000 LR 1000 mL Inj 1,000 ML @ 100 1000 / 1000 mls/hr IV.CONT .Q10H [facility] Rx#: [id number] LR 1000 mL Inj 1,000 ML @ Wide 1000 / 1000 Open IV.SIG BOLUS ONE Rx#: [id number] Avelox 400 mg Premix 250 ML @ 250 / 250 250 mls/hr IV.SIG Q24H [facility] Rx#: [id number] Oral 480 / 480 0 / 0 Oral Supplement 0 / 0 Other: # Voids 2 1 Date of Last Bowel Movement 11/11/17 11/11/17 # Bowel Movements 0 Results Procedures completed during hospitalization: none Labs on day of discharge: Labs from last 24 hours 11/14/17 11/14/17 05:32 05:32 CBC w Diff Auto diff final WBC 6.9 D RBC 3.99 L Hgb 12.1 D Hct 36.3 MCV 90.8 MCH 30.4 MCHC 33.5 RDW 12.5 Plt Count 331 D MPV 7.8 Neut % (Auto) 62.6 Lymph % (Auto) 22.5 [place] % (Auto) 9.5 H Eos % (Auto) 4.3 H Baso % (Auto) 1.1 Neut # (Auto) 4.2 Lymph # (Auto) 1.6 [place] # (Auto) 0.7 Eos # (Auto) 0.3 Baso # (Auto) 0.1 WBC Differential . Differential Comment . Sodium 142 Potassium 3.8 Chloride 109 H Carbon Dioxide 26.2 Anion Gap 7 BUN 7 Creatinine 0.69 Estimated GFR 89 Random Glucose 82 Calcium 8.0 L D - Impressions ITS Impressions Gallbladder Ultrasound 11/13/17 00:00 CONCLUSION: 1. Mild thickening of the gallbladder wall with presumed gallstones. Gallbladder is partially contracted. The common bile duct and pancreas are not well visualized. No significant abnormality in the liver. Abdomen/Pelvis CT 11/13/17 08:01 CONCLUSION: 1. Abnormal appearance of the gallbladder with gallbladder wall thickening, focus of intraluminal gallbladder air and pericholecystic stranding. 2. Findings consistent with mild jejunal enteritis and mild ileus pattern. There is a 1.7 cm targetoid-appearing intraluminal lesion in the cecum which may reflect a gallstone. Constellation of findings may reflect gallstone ileus. 3. Trace amount of ascites. Hepatobiliary Scan Nuclear Medicine 11/14/17 00:00 CONCLUSION: 1. Nonvisualization of the gallbladder. In the appropriate clinical setting, findings could represent an acute cholecystitis. 2. Single episode of biliary enteric reflux. 3. Otherwise negative. Prompt excretion of tracer into the small bowel. Discharge Plan - Discharge Disposition Patient Disposition: Discharge Home - Discharge Condition Condition: Good - Discharge Order Discharge Orders: Discharge Order (Routine); Ordered 11/14/17 Ordered By: Mike Wahl - Discharge Details Discharge Comment: Per Gen Surg:: May discharge home IF tolerating diet and able to have a bowel movement - Physicians Team Primary Care Provider: Primary Care Physici,No Attending Provider: Mike Wahl Other Providers: Jakob Brown MD ; [employer],Insurance
[2017-11-14 16:05] VITALS: BP 130/62; PULSE 70; RESP 17; TEMP 97; O2SAT 98
== END 2017-11-14 17:29 | disposition home or self-care (01) ==
LOC: PH3 07:38 → PHED 07:38 → PHEDA 07:38 → PH3 11:40
PROVIDERS: ADMIT Family Medicine; ATTEND Family Medicine
DX: R11.2 Nausea with vomiting, unspecified; K80.00 Calculus of gallbladder with acute cholecystitis without obstruction; K56.3 Gallstone ileus